=== PATIENT | male | born 1995 | race Two or more races ===

== ENCOUNTER 2019-09-30 06:25 | Emergency (ER) | payer BC ==
[2019-09-30 06:34] VITALS: BP 157/99; PULSE 84; RESP 18; TEMP 97.8
--- NOTE | 2019-09-30 06:45 | ED ---
ENT HPI - General Chief complaint: ENT Stated complaint: Fever Time Seen by Provider: 09/30/19 06:37 Source: patient, RN notes reviewed, old records reviewed Mode of arrival: ambulatory Limitations: no limitations - History of Present Illness Initial comments: 24-year-old male presents emergency department today after a go to [facility] [employer] in the [place] today. He apparently had a fever 101. He was told he has to be sent home with a fever. Patient states that he's had a minor runny nose today but otherwise been feeling well. Denies cough. Denies travel history. Patient reports no other significant symptoms. - Related Data Previous Rx's Medication Instructions Recorded Azithromycin [Zithromax Z-pack] 250 mg PO DIRECTED #6 tab 07/02/14 Allergies Allergy/AdvReac Type Severity Reaction Status Date / Time No Known Allergies Allergy Verified 07/02/14 18:53 Review of Systems ROS Statement: Those systems with pertinent positive or pertinent negative responses have been documented in the HPI. ROS Other: All systems not noted in ROS Statement are negative. Past Medical History Past Medical History: No Reported History Additional Past Medical History / Comment(s): pneumothorax History of Any Multi-Drug Resistant Organisms: None Reported Past Surgical History: Appendectomy Additional Past Surgical History / Comment(s): titanium plate in chest. Past Psychological History: No Psychological Hx Reported Smoking Status: Never smoker Past Alcohol Use History: None Reported Past Drug Use History: None Reported General Exam - General Exam Comments Initial Comments: Well-appearing 24-year-old male. No distress. Limitations: no limitations General appearance: alert, in no apparent distress Head exam: Present: atraumatic, normocephalic, normal inspection Eye exam: Present: normal appearance, PERRL, EOMI. Absent: scleral icterus, conjunctival injection, periorbital swelling ENT exam: Present: normal exam, mucous membranes moist Neck exam: Present: normal inspection. Absent: tenderness, meningismus, lymphadenopathy Respiratory exam: Present: normal lung sounds bilaterally. Absent: respiratory distress, wheezes, rales, rhonchi, stridor Cardiovascular Exam: Present: regular rate, normal rhythm, normal heart sounds. Absent: systolic murmur, diastolic murmur, rubs, gallop, clicks GI/Abdominal exam: Present: soft, normal bowel sounds. Absent: distended, tenderness, guarding, rebound, rigid Extremities exam: Present: normal inspection, full ROM, normal capillary refill. Absent: tenderness, pedal edema, joint swelling, calf tenderness Back exam: Present: normal inspection Neurological exam: Present: alert, oriented X3, CN II-XII intact Psychiatric exam: Present: normal affect, normal mood Skin exam: Present: warm Course Vital Signs 09/30/19 06:28 Temperature 97.8 F Pulse Rate 84 Respiratory 18 Rate Blood Pressure 157/99 O2 Sat by Pulse 99 Oximetry Medical Decision Making - Medical Decision Making 24-year-old male presenting today for evaluation for temperature check being elevated at 101 when he was going towards him. He works at [employer]. When Patient arrived here his temperature is 97.8. This was checked multiple times. Did not take any medications since being told he could not come to work. He states he had a minor runny nose but no other symptoms. Discussed at this time no further testing is required. No travel history. Discussed the Patient needs to follow-up with his primary care doctor or to monitor for any worsening symptoms he can return. All questions were answered return parameters were discussed. Disposition Clinical Impression: Suspected condition not found, Afebrile Disposition: HOME SELF-CARE Condition: Good Instructions (If sedation given, give patient instructions): Postnasal Drip (DC) Additional Instructions: Patient advised to follow up with primary care doctor. Monitor for fevers. Family other worsening concerns or symptoms to return to the ER for reevaluation if necessary. Is patient prescribed a controlled substance at d/c from ED?: No Referrals: Otoniel Velazco MD [Primary Care Provider] - 1-2 days Time of Disposition: 06:43
== END 2019-09-30 06:55 | disposition home or self-care (01) ==
LOC: EC 06:25
DX: Z03.89 Encounter for observation for other suspected diseases and conditions ruled out (principal); Z78.9 Other specified health status
CPT/HCPCS: 99283